=== PATIENT | female | born 1995 | race Caucasian/White ===

== ENCOUNTER 2024-05-17 10:05 | Emergency (ER) | payer OTHER, SELFPAY ==
[2024-05-17] VITALS (11 sets, daily range): BP systolic 103–134; BP diastolic 65–75; PULSE 97–110; RESP 13–24; TEMP 36.7–36.9; O2SAT 97–100
[2024-05-17] MEDS: SODIUM CHLORIDE 0.9% IV 1,000 ML 999 ML IV CONT (10:22)
[2024-05-17 10:29] LABS: Basophils Absolute Auto 0.01 K/mm3 (0.00-0.10); Basophils Percent Auto 0.1 % (0.0-1.0); Eosinophils Absolute Auto 0.03 K/mm3 (0.02-0.50); Eosinophils Percent Auto 0.3 % (1.0-6.0); Hematocrit 28.5 % (35.0-49.0); Hemoglobin 9.6 g/dL (12.0-15.0); Immature Granulocyte Absolute 0.07 K/mm3 (0.00-0.00); Immature Granulocyte Percent A 0.6 % (0.0-0.0); Lymphocytes Absolute Auto 1.32 K/mm3 (1.10-4.50); Lymphocytes Percent Auto 11.2 % (18.0-42.0); Mean Corpuscular HGB Conc 33.7 g/dL (32-36); Mean Corpuscular Volume 91.9 fL (78.0-102.0); Mean Platelet Volume 10.9 fl (9.2-11.8); Monocytes Absolute Auto 0.56 K/mm3 (0.10-0.90); Monocytes Percent Auto 4.7 % (2.0-11.0); Neutrophils Absolute Auto 9.83 K/mm3 (1.70-7.20); Neutrophils Percent Auto 83.1 % (50.0-70.0); Platelet Count Result 148 K/mm3 (150-420); Red Cell Distribution Width 12.2 % (11.6-14.4); White Blood Count 11.8 K/mm3 (4.8-10.8)
--- NOTE | 2024-05-17 10:47 | ED.PREGNANCY ---
HPI - General Chief complaint: Urogenital-Female Stated complaint: labor Time Seen by Provider: 05/17/24 10:09 Source: patient and family Mode of arrival: wheelchair Limitations: no limitations History of Present Illness HPI Narrative: this is a 29-year-old female that started having abdominal cramping started this morning patient states that water did not break, cramping started the abdomen and pelvis and intense occurring every 10 to 15 seconds. Patient is due for delivery in middle of July otherwise there is no nausea vomiting or fever chills no vaginal discharge and vitals are stable. With a blood pressure of 116/75. Complaint: abdominal pain and contractions Onset (ago): hour(s) Pain Consistency: constant Severity: moderate Quality: Cramping Radiation: pelvis and abdomen Relieving factors: none Exacerbating factors: none Associated symptoms: denies other symptoms OB History - Current : no complications OB History - Previous Pregnancies: no complications Related Data Home Medications Medication Instructions Recorded Confirmed No Home Medications 05/17/24 05/17/24 Allergies Allergy/AdvReac Type Severity Reaction Status Date / Time No Known Allergies Allergy Verified 05/17/24 10:08 Review of Systems Review of Systems: All systems reviewed & are unremarkable except as noted in HPI and below PMFSH Past Medical History Medical History Exam Const: General: healthy appearing, no acute distress and alert Nutritional Appearance: well nourished Orientation/consciousness: patient oriented x3 Limitations: no limitations Chest: Chest palpation & inspection: normal inspection of the chest Resp: Effort & Inspection: normal respiratory effort Auscultation: clear to auscultation bilaterally Cardio: Rate: regular rate Rhythm: regular rhythm GI: Auscultation: normal bowel sounds : General: Yes bladder normal to palpation Other: vaginal exam appears that there is no , with bimanual exam the cervix appears intact and not dilated Neuro: General: patient oriented x3 and moves all extremities Extrem: General: normal to inspection Course Course Emergency Course: patient having cramping there are tones heart tones, patient started on IV with IV fluids and 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 Vital Signs Vital signs: Vital Signs Temperature 36.7 C 05/17/24 10:05 Pulse Rate 105 H 05/17/24 10:05 Respiratory Rate 24 H 05/17/24 10:05 Blood Pressure 116/75 05/17/24 10:05 Pulse Oximetry 98 05/17/24 10:05 Oxygen Delivery Room Air 05/17/24 10:05 Temperature 36.7 C 05/17/24 10:05 Pulse Rate 105 H 05/17/24 10:05 Respiratory Rate 24 H 05/17/24 10:05 Blood Pressure 116/75 05/17/24 10:05 Pulse Oximetry 98 05/17/24 10:05 Oxygen Delivery Room Air 05/17/24 10:05 MDM - OB/Uterine Contractions Lab Data 05/17/24 10:20 05/17/24 10:20 Labs: Lab Results 05/17/24 Range/Units 10:20 WBC 11.8 H (4.8-10.8) K/mm3 RBC 3.10 L (4.20-5.40) M/mm3 Hgb 9.6 L (12.0-15.0) g/dL Hct 28.5 L (35.0-49.0) % MCV 91.9 (78.0-102.0) fL MCH 31.0 (27.0-31.0) pg MCHC 33.7 (32-36) g/dL RDW 12.2 (11.6-14.4) % Plt Count 148 L (150-420) K/mm3 MPV 10.9 (9.2-11.8) fl Immature Gran % (Auto) 0.6 H (0.0-0.0) % Neut % (Auto) 83.1 H (50.0-70.0) % Lymph % (Auto) 11.2 L (18.0-42.0) % [place] % (Auto) 4.7 (2.0-11.0) % Eos % (Auto) 0.3 L (1.0-6.0) % Baso % (Auto) 0.1 (0.0-1.0) % Lymph # (Auto) 1.32 (1.10-4.50) K/mm3 [place] # (Auto) 0.56 (0.10-0.90) K/mm3 Eos # (Auto) 0.03 (0.02-0.50) K/mm3 Baso # (Auto) 0.01 (0.00-0.10) K/mm3 Abs Immat Gran (auto) 0.07 H (0.00-0.00) K/mm3 Absolute Neuts (auto) 9.83 H (1.70-7.20) K/mm3 Abs
[2024-05-17 10:57] LABS: Alanine Aminotransferase 19 U/L (14-59); Albumin Level 2.6 g/dL (3.4-5.0); Alkaline Phosphatase 104 U/L (46-116); Anion Gap 10 mmol/L (4-12); Aspartate Amino Transferase 16 U/L (15-37); Bilirubin,Total 0.3 mg/dL (0.00-1.00); Blood Urea Nitrogen 5 mg/dL (7-18); Calcium 8.4 mg/dL (8.5-10.1); Carbon Dioxide 23 mmol/L (21-32); Chloride 103 mmol/L (98-108); Estimated CRCL calculation 118 ml/min; Estimated Glomerular Filt Rate > 60; Glucose 78 mg/dL (70-99); Osmolality Calculated 278 mOsm/kg (285-295); Potassium 3.4 mmol/L (3.5-5.1); Sodium 136 mmol/L (136-145); Total Protein 6.6 g/dL (6.4-8.2)
== END 2024-05-17 11:29 | disposition short-term general hospital (02) ==
LOC: CHSED 11:07
PROVIDERS: Emergency Provider Emergency Medicine
DX: O26.899 Other specified pregnancy related conditions, unspecified trimester (principal); R10.9 Unspecified abdominal pain; Z3A.00 Weeks of gestation of pregnancy not specified
CPT/HCPCS: 36415; 80053; 84702; 85025; 96360; 99285; J7030